=== PATIENT | male | born 1975 ===

== ENCOUNTER 2023-06-04 13:56 | Outpatient (REF) | payer MEDICAID, SELFPAY ==
--- NOTE | ~2023-06-04 | XR_ITS ---
EXAMINATION: XR LUMBOSACRAL SPINE WITH OBLIQUES CLINICAL INFORMATION: Back pain, disc degeneration. COMPARISON: None available. TECHNIQUE: 4 views of the lumbar spine inclusive of flexion and extension views. FINDINGS: Levoscoliosis of the lumbar spine. Facet arthritis in the mid to lower lumbar spine. Asymmetric degenerative changes with sclerosis in the right sacroiliac joint. Multilevel lumbar spondylosis with moderate loss of disc space height at L3-L4, L4-L5, and L5-S1. Mild grade 1 retrolisthesis of L3 on L4 and L4 on L5. XR/XR lumbar spine 4V min IMPRESSION: Moderate multilevel degenerative disc disease most notable at L3-L4, L4-L5, and L5-S1.
== END 2023-06-04 13:57 | disposition home or self-care (01) ==
LOC: HO.HOSX 13:56
PROVIDERS: PCP Physician Assistant; Visit Provider Physician Assistant
DX: M51.36 Other intervertebral disc degeneration, lumbar region (principal)
CPT/HCPCS: 72110; 99212

== ENCOUNTER 2023-06-04 13:56 | Outpatient (AMB) | payer MEDICAID, SELFPAY ==
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
== END 2023-06-04 15:07 | disposition home or self-care (01) ==
PROVIDERS: PCP Physician Assistant; Referring Provider Physician Assistant; Visit Provider Physician Assistant
DX: M51.36 Other intervertebral disc degeneration, lumbar region (principal)
CPT/HCPCS: 99204